=== PATIENT | male | born 1985 | race Caucasian/White ===

== ENCOUNTER 2017-07-25 13:12 | Emergency (ER) | payer OTHER ==
[2017-07-25 13:14] VITALS: TEMP 36.8
[2017-07-25] MEDS ORDERED: ONDANSETRON 4MG OD TAB PO STA (13:26)
[2017-07-25] MEDS ORDERED: MoRPHine SULFATE 10 MG/ML CARP/VIAL IM STA (13:26)
--- NOTE | 2017-07-25 14:05 | DIAGNOSTIC IMAGING REPORT ---
LEFT SHOULDER 3 VIEWS HISTORY: L shoulder pain COMPARISON: None. FINDINGS: There is no fracture or dislocation. Soft tissues are unremarkable. The left clavicle appears intact. Mild joint space narrowing, subchondral sclerosis, and tiny marginal osteophytes at the AC joint. This is consistent with mild arthrosis. IMPRESSION: 1. No fracture or dislocation within the left shoulder. 2. Mild AC joint arthrosis. Electronically signed by: Samson Browning M.D. 07/25/2017 2:04 PM Dictated Date/Time: 07/25/2017 2:03 PM
[2017-07-25] MEDS ORDERED: HYDROmorphone INJ 1 MG/ML SYR IM STA (14:24)
[2017-07-25] MEDS ORDERED: ONDA4TAB10 SL (14:27)
[2017-07-25] MEDS ORDERED: OXYC1TAB3 PO (14:27)
[2017-07-25 15:30] VITALS: BP 127/77; PULSE 60; O2SAT 98
--- NOTE | 2017-07-25 16:28 | EMERGENCY ROOM VISIT NOTE ---
History First contact with patient: 13:16 Chief Complaint: SHOULDER PAIN Stated Complaint: SHOULDER PAIN History of Present Illness The patient is a 32 year old male who presents to the Emergency Room with complaints of injuries to his left chest wall while bench pressing free weights just prior to arrival. 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 When attempting to press his arms upward, he felt a pop in his left lateral chest region. The patient reports severe pain, rating his discomfort a 10 out of 10. The patient has not noticed any bruising or swelling. He denies any worsening pain with deep breathing, and denies any shortness of breath. He denies any pain extending into the neck or left upper extremity. The patient is right-hand dominant. The patient denies any known prior history of injuries to his left shoulder or pectoralis muscles. Review of Systems 10 system review was performed and was negative except for pertinent positives and negatives as indicated in history of present illness Past Medical/Surgical History Medical Problems: (1) No significant past medical history Surgical Problems: (1) No history of previous surgery Family History Unremarkable Social History Smoking Status: Never Smoker Alcohol Use: occasionally Marital Status: Occupation Status: employed Current/Historical Medications Scheduled Ondasetron Odt (Zofran Odt), 4 MG SL Q6H Scheduled PRN Oxycodone Ir (Roxicodone Ir), 1-2 TAB PO Q4H PRN for Pain Physical Exam Vital Signs Date Time Temp Pulse Resp B/P (MAP) Pulse Ox O2 Delivery O2 Flow Rate FiO2 07/25/17 15:30 60 20 127/77 98 07/25/17 13:14 36.8 72 18 145/89 98 Room Air Physical Exam CONSTITUTIONAL: Healthy and well nourished. Alert and oriented X 3 with positive affect. Patient appears in severe discomfort, is diaphoretic and pale in appearance. HEENT: Normocephalic, atraumatic. Pupils equal, round and reactive. No conjunctival injection/pallor. NECK: Full active range of motion without discomfort. No JVD or carotid bruits. RESPIRATORY: Clear to auscultation bilaterally with no wheezing, crackles, rhonchi or stridor. CARDIOVASCULAR: Regular rate and rhythm with no murmurs, rubs or gallops. GASTROINTESTINAL: Bowel sounds present in all quadrants. Soft and nontender to palpation. MUSCULOSKELETAL: Examination shows significant tenderness to palpation over the left lateral pectoralis major margin and along its insertion route. The patient has no other tenderness to palpation of the bicipital groove, biceps musculature, acromioclavicular joint or distal clavicle. No tenderness to palpation through the anterior chest wall or costochondral joints. INTEGUMENTARY: No rash or other significant dermatologic conditions noted. NEUROLOGIC: No focal neurologic deficits noted. Medical Decision & Procedures ER Provider Diagnostic Interpretation: LEFT SHOULDER 3 VIEWS HISTORY: L shoulder pain COMPARISON: None. FINDINGS: There is no fracture or dislocation. Soft tissues are unremarkable. The left clavicle appears intact. Mild joint space narrowing, subchondral sclerosis, and tiny marginal osteophytes at the AC joint. This is consistent with mild arthrosis. IMPRESSION: 1. No fracture or dislocation within the left shoulder. 2. Mild AC joint arthrosis. Medications Administered Medications (Trade) Dose Ordered Sig/Zahra Route Start Time Stop Time Status Last Admin Dose Admin Morphine Sulfate (MoRPHine SULFATE INJ) 10 mg NOW STAT IM 07/25/17 13:26 07/25/17 13:41 DC 07/25/17 13:40 10 MG Ondansetron HCl (Zofran Odt) 4 mg NOW STAT PO 07/25/17 13:26 07/25/17 13:41 DC 07/25/17 13:39 4 MG Hydromorphone HCl (Dilaudid Inj) 1 mg ONE STAT IM 07/25/17 14:24 07/25/17 14:25 DC 07/25/17 14:24 1 MG ED Course Patient history and physical exam were performed. Nurse's notes were reviewed. Vital signs were reviewed, showing an elevated blood pressure of 145/89. The patient appears in severe discomfort. The patient was administered IM morphine and Zofran ODT. X-rays of the left shoulder did not show any acute findings. On reevaluation, the patient reports that he only had minimal relief with the IM morphine. He reports that the nausea was improving. He was therefore administered Dilaudid IM which further reduced his pain to a 5 out of 10. The patient felt well enough for discharge. The patient was provided a copy of his x-rays. The patient reports that he had plans to return to [place] in 1 week. 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 The patient was provided contact information for local orthopedics. The patient reports that he would likely follow-up with his orthopedic surgeon at home, and leave tomorrow morning to fly back to [place]. The patient was provided prescriptions for OxyIR 5 mg, dispense #15 with no refills, and Zofran 4 mg ODT as needed for persistent nausea. The patient was happy with plan of care, and voiced understanding of all discharge instructions. Medical Decision [place] Drug Monitoring Program Search Results: patient reviewed within database, no issues identified Medication Reconcilliation Current Medication List: was personally reviewed by me Blood Pressure Screening Patient's blood pressure: Elevated blood pressure Blood pressure disposition: Elevated BP felt to be situational Impression Primary Impression: Left pectoralis injury Departure Information Prescriptions Ondasetron Odt (ZOFRAN ODT) 4 Mg Tab 4 MG SL Q6H for Nausea, #10 TAB Prov: Servando Norris PA 07/25/17 Oxycodone Ir (Roxicodone Ir) 5 Mg Tab 1-2 TAB PO Q4H Y for Pain, #15 TAB For Initial Treatment Prov: Servando Norris PA 07/25/17 Referrals [facility] (PCP) Patient Instructions My [facility]
== END 2017-07-25 15:32 | disposition home or self-care (01) ==
LOC: C.EDB 13:15 → C.EDD 15:32
DX: S29.011A Strain of muscle and tendon of front wall of thorax, initial encounter (principal); X50.0XXA Overexertion from strenuous movement or load, initial encounter; Y93.B3 Activity, free weights; R03.0 Elevated blood-pressure reading, without diagnosis of hypertension; R11.0 Nausea